=== PATIENT | female | born 1955 | race Caucasian/White ===

== ENCOUNTER 2019-01-16 07:28 | Day surgery (SDC) | payer MEDICARE, BC ==
[2019-01-16] MEDS ORDERED: Lidocaine 2% 100 MG/5 ML Syringe IVPUSH ONE (07:29)
[2019-01-16] MEDS ORDERED: Propofol 200 MG/20 ML SDV IV ONE (07:29)
[2019-01-16] MEDS ORDERED: Midazolam 1 MG/ML 2 ML SDV IV ONE (07:29)
[2019-01-16] MEDS ORDERED: Lactated Ringers 1,000 ML IV SCH (07:30)
[2019-01-16] MEDS ORDERED: Sodium Chloride 0.9% 10 ML Syringe FLUSH PRN (07:30)
--- NOTE | 2019-01-16 08:54 | PCM.OPNOTE ---
- General Post-Op/Procedure Note Date of Surgery/Procedure: 01/16/19 Operative Procedure(s): egd with bx Findings: gastritis irregular z line hiatal hernia Pre Op Diagnosis: sx gerd Post-Op Diagnosis: gastritis. irregular z line. hiatal hernia Anesthesia Technique: MAC Primary Surgeon: Eloy Farias Anesthesia Provider: Roxanne Tripp Pathology: stomach and distal esophagus Complications: None Condition: Good Free Text/Narrative:: see dictation
--- NOTE | 2019-01-16 09:51 | OR ---
DATE OF OPERATION: 01/16/2019 SURGEON: Eloy Farias MD PROCEDURE PERFORMED: Upper endoscopy with cold forceps biopsy. PREOPERATIVE DIAGNOSIS: Symptomatic gastroesophageal reflux disease. POSTOPERATIVE DIAGNOSES: Gastritis and irregular Z-line. INDICATIONS FOR PROCEDURE: This is a 63-year-old white female who has a history of gastroesophageal reflux disease. Recently, she has noted an exacerbation of her symptoms DESCRIPTION OF OPERATION: After an excellent IV sedation was administered, the bite block was inserted. The flexible endoscope was passed without difficulty down the patient's esophagus into the stomach. The stomach was insufflated. The scope was passed through the pylorus to the second portion of the duodenum and slowly withdrawn. The following findings were noted. Duodenum is unremarkable. The stomach demonstrated some mild gastritis in the area of the antrum and some linear erythema in the area of the GE junction. Photos and biopsies were taken. Esophagus, there was no marked erythema. There was some irregularity noticed in the Z-line. Biopsies were taken to rule out the possibility of intestinal metaplasia. The stomach was deflated. The scope was removed. The patient tolerated the procedure well and was taken to Recovery in good condition. Results by letter. /[id number] /MODL
== END 2019-01-16 10:10 | disposition home or self-care (01) ==
LOC: FB.SDS 07:28
PROVIDERS: ATTEND Surgery
DX: K21.9 Gastro-esophageal reflux disease without esophagitis (principal); K20.0 Eosinophilic esophagitis; K29.70 Gastritis, unspecified, without bleeding; K44.9 Diaphragmatic hernia without obstruction or gangrene; I10 Essential (primary) hypertension; Z79.899 Other long term (current) drug therapy
CPT/HCPCS: 00731; 43239; 88305; 88313; 88342; J2001; J2250; J2704; J7120